=== PATIENT | female | born 1960 | race Caucasian/White ===

== ENCOUNTER 2017-06-07 09:45 | Outpatient (CLI) | payer OTHER ==
[2017-06-07 11:07] LABS: Hemoglobin 14.4 g/dL (12.0-16.0); Mean Corpuscular HGB CONC 32.9 g/dL (32.0-36.0); Mean Corpuscular Hemoglobin 29.3 pg (27.0-31.0); Mean Platelet Volume 7.9 fL (7.4-10.4); Platelet Count 216 thou/uL (130-400); RBC Distribution Width 12.1 % (11.5-14.5); White Blood Cell (WBC) Count 4.6 thou/uL (4.8-10.8)
[2017-06-07 11:17] LABS: Anion Gap 15 mmol/L (10-20); BUN (Urea Nitrogen) 9 mg/dL (9.8-20.1); Calc. Creatinine Clearance 0 mL/min (70-130); Calcium 9.5 mg/dL (7.8-10.44); Carbon Dioxide 21 mmol/L (22-29); Chloride 105 mmol/L (98-107); Estimated GFR-MDRD 75; Glucose 101 mg/dL (70-105); Potassium 4.4 mmol/L (3.5-5.1); Sodium 137 mmol/L (136-145)
== END 2017-06-07 09:46 | disposition home or self-care (01) ==
LOC: LABBT 09:45
PROVIDERS: ATTEND Neurological Surgery
DX: Z01.818 Encounter for other preprocedural examination (principal); M47.12 Other spondylosis with myelopathy, cervical region
CPT/HCPCS: 80048; 85027; 93005; 93010

== ENCOUNTER 2017-06-11 07:06 | Day surgery (SDC) | payer OTHER ==
[2017-06-07 09:59] VITALS: BMI 28.5
--- NOTE | 2017-06-08 10:46 | HP ---
Duplicate see other H&P MTDD
--- NOTE | 2017-06-08 10:50 | HP ---
ATTENDING PHYSICIAN: Dr. Jorge Vásquez HISTORY OF PRESENT ILLNESS: We recently saw Ms. Paris in our office for symptoms of progressively worsening cervical myelopathy. The patient reports approximately 1 month ago she sustained a fall a nd then developed worsening neck pain, bilateral hand clumsiness and gait instability. MRI was done which revealed profound cervical stenosis at C3-C4 and C4-C5 with predominantly anterior cord francois paul. Dr. Vásquez recommended C3-C4 and C4-C5 for treatment of her symptoms and neurologic preserva tion. The patient expressed understanding and wished to proceed. PAST MEDICAL HISTORY: COPD, anemia, MHMR. PAST SURGICAL HISTORY: Hysterectomy. HOSPITALIZATIONS: See surgical history. FAMILY HISTORY: Noncontributory. SOCIAL HISTORY: The patient smokes 1 pack per day. She drinks alcohol socially. She does not use a ny drugs. MEDICATION LIST: She is unable to provide me a current medication list at this time. ALLERGIES: She is allergic to PENICILLIN. REVIEW OF SYSTEMS: Per HPI. PHYSICAL EXAMINATION: CONSTITUTIONAL: No acute distress. HEAD: Normocephalic, atraumatic. EYES: PERRLA. Extraocular movements intact. NECK: Nontender to palpation. Free active range of motion, supple, no meningismus or nuchal rigidit y. CARDIOVASCULAR: Regular rate and rhythm. LUNGS: The patient is breathing comfortable. She is without any evidence of dyspnea. MUSCULOSKELETAL: She has free active range of motion over all extremities. She is noted to be sligh tly weak 4-/5 throughout. No reflex asymmetry. NEUROLOGIC: She has an unsteady gait. ASSESSMENT AND PLAN: Plan for a C3-C4 and C4-C5 ACDF for treatment for severe cervical stenosis with cervical myelopathy. The patient understands the risks, benefits, and alternatives, and wished to p roceed.
[2017-06-11] MEDS ORDERED: Clindamycin/D5W 900 mg/50 ml Premix Bag ONE (08:12)
[2017-06-11] MEDS ORDERED: Levofloxacin 500 mg/D5W 100 ml Premix Bag ONE (08:12)
[2017-06-11] MEDS ORDERED: Sodium Chloride 0.9% 10 ML ONE (09:24)
[2017-06-11] MEDS ORDERED: Fentanyl 100 MCG/2 ML VIAL ONE ×2 (09:30→11:31)
--- NOTE | 2017-06-11 11:12 | OP ---
DATE OF PROCEDURE: 06/11/2017 SURGEON: Kennedi Padilla MASTER AUTOMOTIVE TECHNICIAN: Breezy Ko PA-C PROCEDURE: Anterior cervical discectomy C3-C4 and C4-C5, interbody arthrodesis, intravertebral biome chanical device, local morselized autograft, demineralized bone matrix, anterior titanium instrumenta tion C3-4 and C4-5. DESCRIPTION OF PROCEDURE: The patient was brought to the operating room and intubated. She was posi tioned supine with the head in modest extension on a gel-filled donut. Incision was made in the righ t precervical area and dissected to medial to the sternocleidomastoid muscle. We identified the ante rior cervical spine and our level was confirmed by x-ray. We placed distraction across the disc spac es and debrided anterior osteophytes. Using the operating microscope and microdissection techniques, it has completely decompressed the C3-4 and C4-5 interspace down to the level of the dura. As expec kings, large calcified central disk herniations osteophytic change and calcified PLL were identified an d debrided. A complete decompression was achieved at both levels. The bony endplates were then deco rticated for the purpose of arthrodesis. An appropriately sized intravertebral biomechanical PEEK de vice was brought into the field, filled with demineralized bone matrix, local morselized autograft, a nd tapped into place securely at C3-4 and C4-5. Next, an anterior plate was brought into the field a nd secured to C3, C4, and C5 using two 14 mm screws at each level, it was then extensively irrigated, immaculate hemostasis was secured, and the wound closed in anatomic layers.
[2017-06-11] MEDS ORDERED: Promethazine HCl 25 MG/ML VIAL ONE (11:22)
[2017-06-11] MEDS ORDERED: Promethazine HCl 25 MG/ML VIAL SLOW IVP PRN (11:28)
[2017-06-11] MEDS ORDERED: Promethazine HCl 25 MG/ML VIAL IM PRN (11:28)
[2017-06-11] MEDS ORDERED: Ondansetron HCl/PF 4 MG/2 ML Vial IVP PRN (11:28)
[2017-06-11] MEDS ORDERED: Lidocaine 1% PF 5 ML VIAL ONE (16:16)
[2017-06-11] MEDS ORDERED: Ketorolac Tromethamine 30 MG/ML VIAL ONE (16:16)
[2017-06-11] MEDS ORDERED: PROPOFOL 200 MG/20 ML VIAL ONE (16:16)
[2017-06-11] MEDS ORDERED: Ondansetron HCl/PF 4 MG/2 ML Vial ONE (16:16)
[2017-06-11] MEDS ORDERED: Glycopyrrolate 0.2 MG/ML 5 ML SYRINGE ONE (16:16)
[2017-06-11] MEDS ORDERED: Dexamethasone 20 MG/5 ML VIAL ONE (16:16)
== END 2017-06-11 15:32 | disposition home or self-care (01) ==
LOC: SDC 07:06
PROVIDERS: ATTEND Neurological Surgery
PROC: 0RG20A0 Fusion of 2 or more Cervical Vertebral Joints with Interbody Fusion Device, Anterior Approach, Anterior Column, Open Approach (ICD-10-PCS; principal; 2017-06-11)
PROC: 0RT30ZZ Resection of Cervical Vertebral Disc, Open Approach (ICD-10-PCS; principal; 2017-06-11)
DX: M48.02 Spinal stenosis, cervical region (principal); M47.12 Other spondylosis with myelopathy, cervical region; J44.9 Chronic obstructive pulmonary disease, unspecified; D64.9 Anemia, unspecified; F17.210 Nicotine dependence, cigarettes, uncomplicated; Z79.899 Other long term (current) drug therapy; Z88.0 Allergy status to penicillin; Z88.6 Allergy status to analgesic agent
CPT/HCPCS: 96374; A4216; C1713; C1776; J0131; J1100; J1885; J1956; J2001; J2405; J2550; J2704; J3010; J3490; J7620

== ENCOUNTER 2017-06-26 15:52 | Outpatient (CLI) | payer OTHER ==
--- NOTE | 2017-06-26 16:12 | RAD ---
4 VIEWS CERVICAL SPINE: Date: 06/26/17 HISTORY: Neck pain. Follow-up from surgery. FINDINGS: C1 to cervicothoracic junction is seen on the lateral view. There are postsurgical changes related to anterior cervical fusion at C3-4 and C4-5 levels with anterior plate and screws transfixing these le vels. Intradiscal prostheses are present. No hardware complication is seen. There is straightening of the normal cervical lordotic curvature. Osteophytes are seen anteriorly at the C5-6 and C6-7 levels. There is mild soft tissue swelling seen anterior to the cervical spine extending from the C2-3 to th e level of the C6 vertebral body. Findings could be related to postoperative changes, but clinical co rrelation is suggested. IMPRESSION: 1. Postsurgical changes related to anterior cervical fusion of C3 through C5 levels. 2. Degenerative changes lower cervical spine. 3. Prominence of the prevertebral soft tissues. This may be related to postoperative findings, but c linical correlation is recommended. CT scan examination can be performed for further evaluation if wa rranted. POS: EDWAR
== END 2017-06-26 15:53 | disposition home or self-care (01) ==
LOC: TBSIIMAG 15:52
PROVIDERS: ATTEND Neurological Surgery
DX: M54.2 Cervicalgia (principal); M47.892 Other spondylosis, cervical region; Z98.1 Arthrodesis status
CPT/HCPCS: 72040

== ENCOUNTER 2017-07-31 15:30 | Outpatient (CLI) | payer OTHER ==
--- NOTE | 2017-07-31 16:32 | RAD ---
CERVICAL SPINE SERIES THREE VIEWS: HISTORY: Follow-up neck surgery. COMPARISON: 06/26/2017 FINDINGS: The patient has undergone anterior cervical fusion. There has been placement of plate and screws, ex tending from C3 to C5. Markers of disk implants are within the confines of the disk level. Degenera tive osteophytic changes are seen at the C5-C6 and C6-C7 levels. IMPRESSION: Stable postoperative change. POS: EDWAR
== END 2017-07-31 15:31 | disposition home or self-care (01) ==
LOC: TBSIIMAG 15:30
PROVIDERS: ATTEND Neurological Surgery
DX: M48.02 Spinal stenosis, cervical region (principal); Z98.1 Arthrodesis status
CPT/HCPCS: 72040

== ENCOUNTER 2017-10-24 10:02 | Outpatient (CLI) | payer OTHER ==
--- NOTE | 2017-10-24 11:04 | MMO ---
BILATERAL SCREENING MAMMOGRAM: HISTORY: Screening. COMPARISON: Mammogram from 2016. TECHNIQUE: Bilateral screening CC and MLO mammograms are performed with computer aided detection. FINDINGS: Scattered fibroglandular densities. No suspicious mass, architectural distortion, or microcalcificat ions. IMPRESSION: BI-RADS 2-Benign findings. Continued screening is recommended. POS: EDWAR
== END 2017-10-24 10:03 | disposition home or self-care (01) ==
LOC: SCSMAMMO 10:02
PROVIDERS: ATTEND Physician Assistant
DX: Z12.31 Encounter for screening mammogram for malignant neoplasm of breast (principal)
CPT/HCPCS: 77067